=== PATIENT | male | born 1950 | race Caucasian/White ===

== ENCOUNTER 2021-03-30 09:28 | Outpatient (CLI) | payer MEDICARE, SELFPAY ==
--- NOTE | ~2021-03-30 | MR_ITS ---
EXAMINATION: MR lumbar spine wo con EXAM DATE: 03/30/2021 10:20 INDICATION: M54.16 - Radiculopathy, lumbar region . Low back pain. TECHNIQUE: Multi-sequential, multiplanar MR images of the lumbar spine were obtained without contrast . Sagittal T1, T2, T2 fat saturation images. Axial T2 weighted images. Correlation is made to [facility] 2019January 19. FINDINGS: Mild to moderate lumbar disc disease. The conus medullaris terminates at the L1/2 level and has normal signal intensity and morphology. There is 4 mm anterolisthesis L4 on L5. No evidence of spondylolysis. There are no suspicious marrow signal abnormalities. Paraspinal soft tissue is unremar kable. Level by level evaluation: T12-L1: Disc does not extend beyond the endplate margin. Facet arthropathy: Mild. Neural foraminal stenosis: No stenosis. Central canal stenosis: No stenosis. L1-L2: There is a mild to moderate diffuse disc bulge. Facet arthropathy: Mild to moderate. Neural foraminal stenosis: Mild bilateral. Central canal stenosis: Mild. L2-L3: There is a moderate diffuse disc bulge. Facet arthropathy: Mild to moderate. Neural foraminal stenosis: Mild to moderate left, mild right. Central canal stenosis: Mild. L3-L4: There is a moderate diffuse disc bulge. Facet arthropathy: Moderate bilateral. Neural foraminal stenosis: Mild to moderate bilateral, left more than right. Central canal stenosis: Mild to moderate. L4-L5: There is a moderate diffuse disc bulge. Facet arthropathy: Severe right, moderate left. Neural foraminal stenosis: Moderate bilateral, right greater than left. Central canal stenosis: Mild to moderate. L5-S1: There is a mild diffuse disc bulge. Facet arthropathy: Moderate to severe right, mild to moderate left. Neural foraminal stenosis: Moderate right, mild to moderate left. Central canal stenosis: Mild. IMPRESSION: 1. L4-5 grade 1 anterolisthesis, severe right facet arthropathy and moderate right neural foraminal stenosis. 2. Less spondylosis other levels. Reviewed, dictated and finalized at location G. IMPRESSION: 1. L4-5 grade 1 anterolisthesis, severe right facet arthropathy and moderate r ight neural foraminal stenosis. 2. Less spondylosis other levels.
== END 2021-03-30 09:29 | disposition home or self-care (01) ==
PROVIDERS: PCP Internal Medicine; Visit Provider Orthopaedic Surgery
DX: M47.26 Other spondylosis with radiculopathy, lumbar region (principal); M48.061 Spinal stenosis, lumbar region without neurogenic claudication
CPT/HCPCS: 72148